=== PATIENT | female | born 2005 | race Caucasian/White ===

== ENCOUNTER 2024-06-17 20:31 | Emergency (ER) | payer OTHER ==
[~2024-06-17] VITALS: Ht 165.1 cm; Wt 63.6 kg
[2024-06-17 20:49] VITALS: TEMP 98
[2024-06-17 21:00] VITALS: BP 125/76; PULSE 87; RESP 17; O2SAT 98
[2024-06-18] MEDS: ACETAMINOPHEN 325 MG TABLET PO ONE (00:17)
== END 2024-06-18 00:56 | disposition home or self-care (01) ==
LOC: EMS 20:41
DX: S80.211A Abrasion, right knee, initial encounter (principal); V89.2XXA Person injured in unspecified motor-vehicle accident, traffic, initial encounter; Y93.89 Activity, other specified; Y92.410 Unspecified street and highway as the place of occurrence of the external cause; Y99.8 Other external cause status
CPT/HCPCS: 72040; 84703; 99284; Z7502; Z7610

== ENCOUNTER 2025-01-14 18:25 | Emergency (ER) | payer OTHER ==
[~2025-01-14] VITALS: Ht 165.1 cm; Wt 65.9 kg
[2025-01-14 18:29] VITALS: TEMP 98.6
[2025-01-14 19:30] VITALS: BP 129/64; PULSE 87; RESP 18; O2SAT 98
[2025-01-14] MEDS ORDERED: ACET-66 PO (21:25)
[2025-01-14] MEDS ORDERED: IBUP-1554 PO (21:25)
[2025-01-14] MEDS: IBUPROFEN 600 MG TABLET PO ONE (21:34)
[2025-01-14] MEDS: ACETAMINOPHEN 500 MG TABLET PO ONE (21:35)
== END 2025-01-14 22:27 | disposition home or self-care (01) ==
LOC: EMS 18:25
DX: S80.01XA Contusion of right knee, initial encounter (principal); S80.211A Abrasion, right knee, initial encounter; S50.311A Abrasion of right elbow, initial encounter; W19.XXXA Unspecified fall, initial encounter; Y93.89 Activity, other specified; Y92.89 Other specified places as the place of occurrence of the external cause; Y99.8 Other external cause status
CPT/HCPCS: 99284; 73562-TC; 73590-TC; Z7502; Z7610